=== PATIENT | female | born 1975 | race Caucasian/White ===

== ENCOUNTER 2021-09-09 15:29 | Emergency (ER) | payer OTHER ==
[~2021-09-09] VITALS: Ht 160 cm; Wt 99.8 kg
[2021-09-09 16:11] LABS: BASOPHIL 0.5 % (0-2); EOSINOPHIL 1.2 % (0-5); HCT 46.7 % (37.0-47.0); HGB 15.9 g/dl (12.5-16.0); LYMPHOCYTE 13.2 % (15-48); MPV 12.1 fL (6.0-9.5); NEUTROPHIL 74.8 % (41-80); NRBC 0; PLT 189 K/uL (150-400); RBC 4.97 M/uL (4.20-5.40); RDW 12.5 % (11.5-14.0); WBC 15.1 K/uL (4.0-10.5)
[2021-09-09 16:24] LABS: BUN/CREAT RATIO (CALC) 19.8 RATIO; CREATININE 0.81 mg/dL (0.51-0.95); POTASSIUM 3.9 mmol/L (3.5-5.1)
[2021-09-09 16:30] LABS: BILIRUBIN NEGATIVE (NEGATIVE); BLOOD 3+ Ery/uL (NEGATIVE); CLARITY CLEAR (CLEAR); COLOR YELLOW (YELLOW); GLUCOSE (U) NORMAL (NORMAL); LEUKOCYTES NEGATIVE Leu/uL (NEGATIVE); NITRITE NEGATIVE (NEGATIVE); PROTEIN 2+ mg/dL (NEGATIVE); SPECIFIC GRAVITY >=1.030 (1.001-1.030); UROBILINOGEN 0.2 mg/dL (0.2-1.0); pH 5.5 (5.0-9.0)
[2021-09-09 16:38] LABS: BACTERIA TRACE
[2021-09-09] MEDS ORDERED: CIPRO500 MG PO (18:38)
[2021-09-09] MEDS ORDERED: METRONIDAZOLE500 MG PO (18:38)
== END 2021-09-09 19:28 | disposition home or self-care (01) ==
LOC: FER 15:29
PROVIDERS: Nurse Practitioner Family
DX: K57.32 Diverticulitis of large intestine without perforation or abscess without bleeding (principal); I10 Essential (primary) hypertension
CPT/HCPCS: 36415; 80048; 81001; 85025; J7030; Q9967